=== PATIENT | male | born 1985 | race Caucasian/White ===

== ENCOUNTER 2020-12-17 22:02 | Emergency (ER) | payer SELFPAY ==
[~2020-12-17] VITALS: Ht 182.9 cm; Wt 95.5 kg
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
[2020-12-17] MEDS ORDERED: DOXYCYCLINE HYCLATE 100 MG TABLET PO ONE (23:30)
[2020-12-17] MEDS ORDERED: NEOMY/BACITR/POLYMYXIN OINT PACKET. TP ONE ×3 (23:31→23:45)
[2020-12-17] MEDS ORDERED: DOXY100C2 PO (23:34)
[2020-12-17 23:37] VITALS: BP 170/102
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
== END 2020-12-17 23:40 | disposition home or self-care (01) ==
LOC: ER 22:02
DX: S91.332A Puncture wound without foreign body, left foot, initial encounter (principal); F17.200 Nicotine dependence, unspecified, uncomplicated; W34.010A Accidental discharge of airgun, initial encounter; Y93.89 Activity, other specified; Y92.89 Other specified places as the place of occurrence of the external cause; Y99.8 Other external cause status
CPT/HCPCS: 73630; 99283